=== PATIENT | female | born 1955 | race Caucasian/White ===

== ENCOUNTER → 2019-05-08 | Outpatient (CLI) | payer MEDICARE, OTHER ==
--- NOTE | 2019-05-09 06:53 | ECHO ---
DATE OF STUDY: 05/08/2019 REFERRING PROVIDER: Leah Patel INDICATION: Palpitations. HEIGHT: 5 feet 0 inches. WEIGHT: 119 pounds. 2-D MEASUREMENTS: Ventricular septum: 0.74 cm Posterior wall: 0.91 cm Left ventricle diastole: 3.8 cm Left ventricle systole: 2.3 cm Left atrium: 2.9 cm Left atrial volume index: 33 Aortic root: 2.4 cm Inferior vena cava: 2.3 cm DOPPLER MEASUREMENTS: Mild aortic regurgitation Aortic valve velocity: 189 cm/sec LVOT velocity: 110 cm/sec Very mild mitral regurgitation Mitral E velocity: 76.7 cm/sec Mitral A velocity: 51.4 cm/sec Mild tricuspid regurgitation Estimated right ventricular systolic pressure 37 mmHg assuming a right atrial pressure of 10 mmHg No pulmonic regurgitation MITRAL ANNULAR TISSUE DOPPLER: E prime septal: 10.1 cm/sec E prime lateral: 9.3 cm/sec DESCRIPTION: The rhythm was sinus. The image quality was good. No pericardial effusion. This was a 2-D, M-mode, color flow Doppler and pulse wave Doppler examination and included mitral annular tissue Doppler. CONCLUSIONS: 1. Normal left ventricle internal dimensions and wall thickness. Normal regional LV wall motion and wall thickening. Normal LV systolic function. LVEF 65% by visual estimate. Normal LV diastolic function. 2. Mild left atrial dilatation by left atrial volume index. 3. Mild aortic valve sclerosis of a 3-cuspid aortic valve. Mild aortic regurgitation. 4. Suggestive of mild elevation of estimated right ventricle systolic pressure. 5. Mild dilatation of inferior vena cava.
== END ==
LOC: M CARPUL 15:43
PROVIDERS: ATTEND Nurse Practitioner Family
DX: R00.2 Palpitations (principal); I35.8 Other nonrheumatic aortic valve disorders